=== PATIENT | male | born 1990 | race Caucasian/White ===

== ENCOUNTER 2017-12-09 22:06 | Inpatient (IN) | payer OTHER, MEDICAID ==
[~2017-12-09] VITALS: Ht 152.4 cm; Wt 38.5 kg
[2017-12-09] MEDS ORDERED: propofol 1000mg/100ml bottle 100 ML IV ONE (22:25)
[2017-12-09] MEDS: propofol 1000mg/100ml bottle 100 ML IV PRN (22:41)
[2017-12-09] MEDS ORDERED: ATR0.5NEB IH (22:59)
[2017-12-09] MEDS ORDERED: GUAI600T45 PO (22:59)
[2017-12-09] MEDS ORDERED: BUDE0.5A11 NEB (23:04)
[2017-12-09 23:18] LABS: CLARITY,URINE CLEAR (Clear); COLOR,URINE YELLOW (Yellow); GLUCOSE, URINE NEGATIVE (Neg); KETONES,URINE TRACE mg/dl (Neg); LEUKOCYTE ESTERASE ,URINE NEGATIVE (Neg); NITRITES, URINE NEGATIVE (Neg); OCCULT BLOOD,URINE NEGATIVE (Neg); PH,URINE 6.5 (4.8-8.0); PROTEIN,URINE NEGATIVE (Neg); UROBILINOGEN,URINE 0.2 E.U/dL (0.2-1.0)
[2017-12-09 23:20] LABS: UA COLLECTION TYPE FOLEY CATH
[2017-12-09 23:31] LABS: ABG BASE EXCESS 2.8 mmol/L (-2.0-3.0); ABG HCO3 28.7 mmol/L (22.0-26.0); ABG OXYGEN SATURATION 95.4 % (95-98); ABG PCO2 (T) 47.8 mmHg (35.0-48.0); ABG PH (T) 7.394 (7.350-7.450); ABG PO2 (T) 70.5 mmHg (83-108); FCOHb 0.9 % (0.5-1.5); FMetHb 0.2 % (0.3-1.12); FO2Hb 94.4 % (94-100); MINUTE VOLUME 5 L/min; PATIENT TEMPERATURE 36.4; PEEP 5 cm H2O; RESPIRATORY RATE 16 b/min; RESPIRATORY RATE (OBSERVED) 16 b/min; TIDAL VOLUME 275 mL; TOTAL HEMOGLOBIN 13.8 G/dl (14.0-18.0)
[2017-12-09] MEDS ORDERED: propofol 1000mg/100ml bottle 100 ML IV PRN (23:32)
[2017-12-09] MEDS ORDERED: magnesium hydroxide 30ml (MOM) UD suspension PO PRN (23:35)
[2017-12-09] MEDS ORDERED: ondansetron/PF 4mg/2ml inj IV PRN (23:35)
[2017-12-09] MEDS ORDERED: acetaminophen 650mg rectal suppository RC PRN (23:35)
[2017-12-09] MEDS: K, MAG and/or Phos replacement - Verify level? MC SCH (23:35)
[2017-12-09] MEDS ORDERED: potassium Cl 40MEQ/NS 500ml 500 ML IV PRN ×2 (23:35)
[2017-12-09] MEDS ORDERED: potassium Cl 20 mEq SR tablet PO PRN ×2 (23:35)
[2017-12-09] MEDS ORDERED: morphine 4 MG/ML inj SYRINge IV PRN ×2 (23:35)
[2017-12-09] MEDS ORDERED: acetaminophen 325mg tablet PO PRN (23:35)
[2017-12-09 23:57] LABS: INR 1.1 INR; PARTIAL THROMBOPLASTIN TIME 23 SECONDS (22-32); PROTHROMBIN TIME 11.1 SECONDS (9.0-12.0)
[2017-12-10] VITALS (26 sets, daily range): BP systolic 78–133; BP diastolic 40–88
[2017-12-10] MEDS: normal saline 1000ml 1,000 ML IV SCH ×2 (00:06→07:13)
[2017-12-10] MEDS: levoFLOXACIN-Levaquin 500mg/D5 100 ML IV SCH ×2 (00:06→23:49)
[2017-12-10 01:19] LABS: ALANINE AMINOTRANSFERASE 50 U/L (12-78); ALBUMIN 2.6 G/DL (3.4-5.0); ALBUMIN/GLOBULIN RATIO 0.8 (1.1-1.5); ALKALINE PHOSPHATASE 44 IU/L (46-116); ANION GAP 7 (8-16); ASPARTATE AMINO TRANSFERASE 42 U/L (10-37); BILIRUBIN,TOTAL 0.4 MG/DL (0.1-1.0); BLOOD UREA NITROGEN 7 MG/DL (7-18); BUN/CREATININE RATIO 33.3 (5.4-32.0); CHLORIDE 111 MMOL/L (99-107); CREATININE 0.21 MG/DL (0.60-1.10); GLUCOSE 125 MG/DL (70-104); MAGNESIUM 1.5 MG/DL (1.5-2.4); POTASSIUM 3.3 MMOL/L (3.5-5.1); SODIUM 147 MMOL/L (135-145); TOTAL CARBON DIOXIDE 28.9 MMOL/L (24-32); TOTAL PROTEIN 5.9 G/DL (6.4-8.2); eGFR > 90 ML/MIN
[2017-12-10] MEDS: propofol 1000mg/100ml bottle 100 ML IV PRN ×3 (01:57→14:00)
[2017-12-10] MEDS: azithromycin/NS 500mg/250ml 250 ML IV SCH ×2 (03:01→20:13)
[2017-12-10] MEDS ORDERED: potassium Cl 40MEQ/NS 500ml 500 ML IV ONE (03:40)
[2017-12-10 04:32] LABS: BASOPHILS % (AUTO) 0 % (0-1); EOSINOPHILS % (AUTO) 0 % (0-6); HEMATOCRIT 41.4 % (42.0-52.0); HEMOGLOBIN 13.6 g/dl (14.0-17.9); LYMPHOCYTES # (AUTO) 0.6 X10'3 (1.1-4.8); LYMPHOCYTES % (AUTO) 2.4 % (21-51); MEAN CORPUSCULAR HEMOGLOBIN 30.3 PG (27.0-31.0); MEAN CORPUSCULAR HGB CONC 32.9 % (33.0-36.5); MEAN CORPUSCULAR VOLUME 92.1 FL (78-98); MEAN PLATELET VOLUME 8.4 FL (7.4-10.4); MONOCYTES # (AUTO) 1.8 X10'3 (0-0.9); MONOCYTES % (AUTO) 6.8 % (2-12); NEUTROPHILS % (AUTO) 90.8 % (42-75); PLATELET COUNT 298 X10'3 (140-440); RED BLOOD COUNT 4.49 X10'6 (4.70-6.10); RED CELL DISTRIBUTION WIDTH 13.6 % (11.5-14.5)
[2017-12-10 04:34] LABS: WHITE BLOOD COUNT 26.4 X10'3 (4.5-11.0)
[2017-12-10] MEDS ORDERED: midazolam 100mg in NS 100ml 100 ML IV PRN (04:55)
[2017-12-10] MEDS ORDERED: normal saline 1000ml 1,000 ML IV ONE (05:00)
[2017-12-10 07:13] LABS: TOTAL CELLS COUNTED 100
[2017-12-10 07:14] LABS: PLATELET ESTIMATE NORMAL; TOXIC GRANULATION 1+; TOXIC VACUOLATION 1+
[2017-12-10] MEDS: K, MAG and/or Phos replacement - Verify level? MC SCH (08:00)
[2017-12-10] MEDS ORDERED: enoxaparin 40mg/0.4ml syringe SUBCUT SCH (08:00)
[2017-12-10] MEDS: pantoprazole 40 MG vial IV SCH (08:04)
[2017-12-10] MEDS ORDERED: enoxaparin 30mg/0.3ml syringe SUBCUT SCH (10:46)
[2017-12-10 11:44] LABS: BASOPHILS % (AUTO) 0.1 % (0-1); EOSINOPHILS % (AUTO) 0 % (0-6); HEMOGLOBIN 12.3 g/dl (14.0-17.9); LYMPHOCYTES # (AUTO) 0.9 X10'3 (1.1-4.8); LYMPHOCYTES % (AUTO) 4.2 % (21-51); MEAN CORPUSCULAR HEMOGLOBIN 30.9 PG (27.0-31.0); MEAN CORPUSCULAR HGB CONC 34.2 % (33.0-36.5); MEAN CORPUSCULAR VOLUME 90.4 FL (78-98); MONOCYTES # (AUTO) 0.9 X10'3 (0-0.9); MONOCYTES % (AUTO) 4.3 % (2-12); NEUTROPHILS # (AUTO) 19.6 X10'3 (1.8-7.7); NEUTROPHILS % (AUTO) 91.4 % (42-75); PLATELET COUNT 286 X10'3 (140-440); RED BLOOD COUNT 3.98 X10'6 (4.70-6.10); RED CELL DISTRIBUTION WIDTH 13.4 % (11.5-14.5); WHITE BLOOD COUNT 21.5 X10'3 (4.5-11.0)
[2017-12-10 11:58] LABS: ALANINE AMINOTRANSFERASE 55 U/L (12-78); ALBUMIN/GLOBULIN RATIO 0.8 (1.1-1.5); ALKALINE PHOSPHATASE 96 IU/L (46-116); ANION GAP 8 (8-16); ASPARTATE AMINO TRANSFERASE 37 U/L (10-37); BILIRUBIN,TOTAL 0.8 MG/DL (0.1-1.0); BLOOD UREA NITROGEN 8 MG/DL (7-18); BUN/CREATININE RATIO 26.7 (5.4-32.0); CALCIUM 8.9 MG/DL (8.5-10.1); CHLORIDE 111 MMOL/L (99-107); GLUCOSE 86 MG/DL (70-104); MAGNESIUM 1.9 MG/DL (1.5-2.4); PHOSPHORUS 1.3 MG/DL (2.3-4.5); POTASSIUM 4.2 MMOL/L (3.5-5.1); SODIUM 146 MMOL/L (135-145); TOTAL CARBON DIOXIDE 27.1 MMOL/L (24-32); TOTAL PROTEIN 6.7 G/DL (6.4-8.2); eGFR > 90 ML/MIN
[2017-12-10 11:59] LABS: PLATELET ESTIMATE NORMAL; TOTAL CELLS COUNTED 100
[2017-12-10 12:00] LABS: TOXIC VACUOLATION FEW
[2017-12-10] MEDS: Potassium Cl inj 40 MEQ in sodium chloride 0.45% 980 ML IV SCH ×2 (13:57→20:00)
[2017-12-10] MEDS ORDERED: sodium phosphate inj. 30 MMOL in dextrose 5%-water 250 ML IV PRN (14:06)
[2017-12-10] MEDS: Neutra Phos packet PO PRN ×2 (14:35→23:49)
[2017-12-10] MEDS: acetaminophen 325mg/10.15ml oral unit dose solution PO PRN ×2 (14:36→20:14)
[2017-12-10] MEDS: levalbuterol 0.63mg/3ml nebule IH SCH ×2 (14:38→21:24)
[2017-12-10] MEDS: polyethylene glycol 3350 17gm powd pack PO SCH (20:14)
[2017-12-11] VITALS (24 sets, daily range): BP systolic 93–138; BP diastolic 53–91
[2017-12-11] MEDS: Potassium Cl inj 40 MEQ in sodium chloride 0.45% 980 ML IV SCH ×2 (03:02→16:00)
[2017-12-11] MEDS: mineral oil/petrolatum ophthal oint EACHEYE SCH ×4 (03:03→20:21)
[2017-12-11] MEDS: levalbuterol 0.63mg/3ml nebule IH SCH ×4 (03:05→21:29)
[2017-12-11 03:36] LABS: BASOPHILS # (AUTO) 0.1 X10'3 (0-0.2); BASOPHILS % (AUTO) 0.3 % (0-1); EOSINOPHILS % (AUTO) 0 % (0-6); HEMATOCRIT 34.5 % (42.0-52.0); HEMOGLOBIN 11.6 g/dl (14.0-17.9); LYMPHOCYTES # (AUTO) 2.1 X10'3 (1.1-4.8); LYMPHOCYTES % (AUTO) 11.5 % (21-51); MEAN CORPUSCULAR HEMOGLOBIN 30.7 PG (27.0-31.0); MEAN CORPUSCULAR HGB CONC 33.7 % (33.0-36.5); MEAN CORPUSCULAR VOLUME 91.2 FL (78-98); MONOCYTES # (AUTO) 1.2 X10'3 (0-0.9); MONOCYTES % (AUTO) 6.7 % (2-12); NEUTROPHILS % (AUTO) 81.5 % (42-75); PLATELET COUNT 295 X10'3 (140-440); RED BLOOD COUNT 3.78 X10'6 (4.70-6.10); RED CELL DISTRIBUTION WIDTH 13.5 % (11.5-14.5); WHITE BLOOD COUNT 18.4 X10'3 (4.5-11.0)
[2017-12-11 03:51] LABS: ALANINE AMINOTRANSFERASE 124 U/L (12-78); ALBUMIN/GLOBULIN RATIO 0.7 (1.1-1.5); ALKALINE PHOSPHATASE 77 IU/L (46-116); ANION GAP 10 (8-16); ASPARTATE AMINO TRANSFERASE 99 U/L (10-37); BILIRUBIN,TOTAL 0.9 MG/DL (0.1-1.0); BLOOD UREA NITROGEN 4 MG/DL (7-18); BUN/CREATININE RATIO 11.8 (5.4-32.0); CHLORIDE 105 MMOL/L (99-107); CREATININE 0.34 MG/DL (0.60-1.10); GLUCOSE 90 MG/DL (70-104); MAGNESIUM 1.8 MG/DL (1.5-2.4); PHOSPHORUS 1.4 MG/DL (2.3-4.5); POTASSIUM 3.9 MMOL/L (3.5-5.1); SODIUM 140 MMOL/L (135-145); TOTAL CARBON DIOXIDE 25.4 MMOL/L (24-32); TOTAL PROTEIN 7.2 G/DL (6.4-8.2); eGFR > 90 ML/MIN
[2017-12-11 05:21] LABS: ABG BASE EXCESS 3.2 mmol/L (-2.0-3.0); ABG HCO3 25.7 mmol/L (22.0-26.0); ABG OXYGEN SATURATION 96.8 % (95-98); ABG PCO2 (T) 34.9 mmHg (35.0-48.0); ABG PH (T) 7.491 (7.350-7.450); ABG PO2 (T) 85.3 mmHg (83-108); ALLEN'S TEST Positive; FCOHb 0.1 % (0.5-1.5); FMetHb 0.2 % (0.3-1.12); FO2Hb 96.5 % (94-100); MINUTE VOLUME 8 L/min; PATIENT TEMPERATURE 38.5; PEEP 5 cm H2O; RESPIRATORY RATE 16 b/min; RESPIRATORY RATE (OBSERVED) 17 b/min; TIDAL VOLUME 400 mL; TOTAL HEMOGLOBIN 12.3 G/dl (14.0-18.0)
[2017-12-11] MEDS: acetaminophen 325mg/10.15ml oral unit dose solution PO PRN ×2 (05:41→15:48)
[2017-12-11] MEDS: K, MAG and/or Phos replacement - Verify level? MC SCH (08:00)
[2017-12-11] MEDS: pantoprazole 40 MG vial IV SCH (08:11)
[2017-12-11] MEDS: enoxaparin 30mg/0.3ml syringe SUBCUT SCH (08:12)
[2017-12-11] MEDS: polyethylene glycol 3350 17gm powd pack PO SCH (20:21)
[2017-12-11] MEDS: azithromycin/NS 500mg/250ml 250 ML IV SCH (20:21)
[2017-12-11] MEDS: levoFLOXACIN-Levaquin 500mg/D5 100 ML IV SCH (23:56)
[2017-12-12] VITALS (24 sets, daily range): BP systolic 81–147; BP diastolic 58–105
[2017-12-12] MEDS: mineral oil/petrolatum ophthal oint EACHEYE SCH ×4 (01:05→21:02)
[2017-12-12] MEDS: acetaminophen 325mg/10.15ml oral unit dose solution PO PRN (01:06)
[2017-12-12] MEDS: Potassium Cl inj 40 MEQ in sodium chloride 0.45% 980 ML IV SCH ×3 (01:06→18:06)
[2017-12-12] MEDS: levalbuterol 0.63mg/3ml nebule IH SCH ×4 (03:06→21:20)
[2017-12-12 03:36] LABS: ANION GAP 10 (8-16); BLOOD UREA NITROGEN 5 MG/DL (7-18); BUN/CREATININE RATIO 17.2 (5.4-32.0); CALCIUM 7.9 MG/DL (8.5-10.1); CHLORIDE 108 MMOL/L (99-107); CREATININE 0.29 MG/DL (0.60-1.10); GLUCOSE 103 MG/DL (70-104); MAGNESIUM 1.7 MG/DL (1.5-2.4); SODIUM 141 MMOL/L (135-145); TOTAL CARBON DIOXIDE 23.1 MMOL/L (24-32); eGFR > 90 ML/MIN
[2017-12-12 03:37] LABS: ALANINE AMINOTRANSFERASE 104 U/L (12-78); ALBUMIN 2.5 G/DL (3.4-5.0); ALBUMIN/GLOBULIN RATIO 0.6 (1.1-1.5); ALKALINE PHOSPHATASE 84 IU/L (46-116); BILIRUBIN,TOTAL 0.5 MG/DL (0.1-1.0); PREALBUMIN 13.7 MG/DL (19-36); TOTAL PROTEIN 6.8 G/DL (6.4-8.2)
[2017-12-12 03:38] LABS: ASPARTATE AMINO TRANSFERASE 78 U/L (10-37); PHOSPHORUS 1.7 MG/DL (2.3-4.5); POTASSIUM 3.9 MMOL/L (3.5-5.1)
[2017-12-12 03:43] LABS: BASOPHILS % (AUTO) 0.4 % (0-1); EOSINOPHILS # (AUTO) 0.1 X10'3 (0-0.9); EOSINOPHILS % (AUTO) 0.6 % (0-6); HEMATOCRIT 34.6 % (42.0-52.0); HEMOGLOBIN 11.8 g/dl (14.0-17.9); LYMPHOCYTES # (AUTO) 1.3 X10'3 (1.1-4.8); MEAN CORPUSCULAR HEMOGLOBIN 30.7 PG (27.0-31.0); MEAN CORPUSCULAR HGB CONC 34.2 % (33.0-36.5); MEAN CORPUSCULAR VOLUME 89.9 FL (78-98); MEAN PLATELET VOLUME 9.2 FL (7.4-10.4); NEUTROPHILS # (AUTO) 9.8 X10'3 (1.8-7.7); PLATELET COUNT 302 X10'3 (140-440); RED BLOOD COUNT 3.85 X10'6 (4.70-6.10); RED CELL DISTRIBUTION WIDTH 12.6 % (11.5-14.5); WHITE BLOOD COUNT 12.2 X10'3 (4.5-11.0)
[2017-12-12] MEDS: sodium phosphate inj. 15 MMOL in dextrose 5%-water 150 ML IV PRN (03:52)
[2017-12-12 04:40] LABS: ABG BASE EXCESS 1.9 mmol/L (-2.0-3.0); ABG HCO3 25.2 mmol/L (22.0-26.0); ABG OXYGEN SATURATION 93.4 % (95-98); ABG PCO2 (T) 36.3 mmHg (35.0-48.0); ABG PH (T) 7.462 (7.350-7.450); ABG PO2 (T) 62.2 mmHg (83-108); ALLEN'S TEST Positive; FCOHb 0.3 % (0.5-1.5); FMetHb 0.3 % (0.3-1.12); FO2Hb 92.8 % (94-100); MINUTE VOLUME 7 L/min; PATIENT TEMPERATURE 37.9; PEEP 5 cm H2O; RESPIRATORY RATE 14 b/min; RESPIRATORY RATE (OBSERVED) 15 b/min; TIDAL VOLUME 400 mL; TOTAL HEMOGLOBIN 12.9 G/dl (14.0-18.0)
[2017-12-12] MEDS: pantoprazole 40 MG vial IV SCH (07:57)
[2017-12-12] MEDS: methylnaltrexone br 12mg/0.6ml inj***SubQ only SQ SCH (07:58)
[2017-12-12] MEDS: enoxaparin 30mg/0.3ml syringe SUBCUT SCH (07:58)
[2017-12-12] MEDS: K, MAG and/or Phos replacement - Verify level? MC SCH (08:11)
[2017-12-12] MEDS: [UNRECOGNIZED DRUG - OTHER] IV SCH (12:43)
[2017-12-12 16:40] LABS: TOTAL CELLS COUNTED 100
[2017-12-12 16:41] LABS: BURR CELLS 1+; PLATELET ESTIMATE NORMAL; POLYCHROMASIA FEW
[2017-12-12] MEDS: polyethylene glycol 3350 17gm powd pack PO SCH (21:02)
[2017-12-12] MEDS: lactobacillus rhamnosus 10,000 MMU CELLS/CAPSULE PO SCH (21:02)
[2017-12-12] MEDS: azithromycin/NS 500mg/250ml 250 ML IV SCH (21:03)
[2017-12-13] VITALS (20 sets, daily range): BP systolic 86–125; BP diastolic 51–86
[2017-12-13] MEDS: mineral oil/petrolatum ophthal oint EACHEYE SCH ×4 (02:00→21:22)
[2017-12-13] MEDS: levalbuterol 0.63mg/3ml nebule IH SCH ×4 (03:04→21:05)
[2017-12-13 05:25] LABS: HEMATOCRIT 38.6 % (42.0-52.0); MEAN CORPUSCULAR HEMOGLOBIN 30.3 PG (27.0-31.0); MEAN CORPUSCULAR HGB CONC 33.6 % (33.0-36.5); MEAN CORPUSCULAR VOLUME 90.1 FL (78-98); MEAN PLATELET VOLUME 8.6 FL (7.4-10.4); PLATELET COUNT 357 X10'3 (140-440); RED BLOOD COUNT 4.28 X10'6 (4.70-6.10); RED CELL DISTRIBUTION WIDTH 13.6 % (11.5-14.5); WHITE BLOOD COUNT 9.9 X10'3 (4.5-11.0)
[2017-12-13 05:46] LABS: ANION GAP 10 (8-16); BLOOD UREA NITROGEN 7 MG/DL (7-18); BUN/CREATININE RATIO 20.6 (5.4-32.0); CHLORIDE 102 MMOL/L (99-107); CREATININE 0.34 MG/DL (0.60-1.10); GLUCOSE 99 MG/DL (70-104); POTASSIUM 4.6 MMOL/L (3.5-5.1); SODIUM 139 MMOL/L (135-145); TOTAL CARBON DIOXIDE 26.6 MMOL/L (24-32)
[2017-12-13 05:47] LABS: ALANINE AMINOTRANSFERASE 124 U/L (12-78); ALBUMIN 3.3 G/DL (3.4-5.0); ALBUMIN/GLOBULIN RATIO 0.6 (1.1-1.5); ALKALINE PHOSPHATASE 127 IU/L (46-116); ASPARTATE AMINO TRANSFERASE 68 U/L (10-37); BILIRUBIN,TOTAL 0.6 MG/DL (0.1-1.0); CALCIUM 10.1 MG/DL (8.5-10.1); MAGNESIUM 2.3 MG/DL (1.5-2.4); PHOSPHORUS 2.8 MG/DL (2.3-4.5); TOTAL PROTEIN 8.4 G/DL (6.4-8.2); eGFR > 90 ML/MIN
[2017-12-13] MEDS: Potassium Cl inj 40 MEQ in sodium chloride 0.45% 980 ML IV SCH ×3 (05:50→17:47)
[2017-12-13] MEDS: lactobacillus rhamnosus 10,000 MMU CELLS/CAPSULE PO SCH ×3 (08:00→20:00)
[2017-12-13] MEDS: K, MAG and/or Phos replacement - Verify level? MC SCH (08:00)
[2017-12-13] MEDS: [UNRECOGNIZED DRUG - OTHER] IV SCH (08:07)
[2017-12-13] MEDS: pantoprazole 40 MG vial IV SCH (08:07)
[2017-12-13] MEDS: enoxaparin 30mg/0.3ml syringe SUBCUT SCH (08:08)
[2017-12-13 08:11] LABS: ABG BASE EXCESS 1.7 mmol/L (-2.0-3.0); ABG HCO3 26.1 mmol/L (22.0-26.0); ABG OXYGEN SATURATION 96.6 % (95-98); ABG PCO2 (T) 39.8 mmHg (35.0-48.0); ABG PH (T) 7.433 (7.350-7.450); ABG PO2 (T) 82.7 mmHg (83-108); FCOHb 0.5 % (0.5-1.5); FMetHb 0.2 % (0.3-1.12); FO2Hb 95.9 % (94-100); MINUTE VOLUME 9 L/min; PATIENT TEMPERATURE 36.9; PEEP 5 cm H2O; RESPIRATORY RATE (OBSERVED) 33 b/min; TIDAL VOLUME 317 mL; TOTAL HEMOGLOBIN 14.6 G/dl (14.0-18.0)
[2017-12-13 10:23] LABS: TOTAL CELLS COUNTED 100
[2017-12-13 10:24] LABS: PLATELET ESTIMATE NORMAL; POLYCHROMASIA 1+
[2017-12-13 10:25] LABS: BURR CELLS 1+
[2017-12-13] MEDS ORDERED: bisacodyl 10mg suppository rectal RC PRN (12:20)
[2017-12-13] MEDS: acetaminophen 325mg tablet PO PRN (17:41)
[2017-12-13] MEDS: polyethylene glycol 3350 17gm powd pack PO SCH (21:22)
[2017-12-13] MEDS: azithromycin/NS 500mg/250ml 250 ML IV SCH (21:24)
[2017-12-14] VITALS (24 sets, daily range): BP systolic 82–122; BP diastolic 54–85
[2017-12-14] MEDS: mineral oil/petrolatum ophthal oint EACHEYE SCH ×4 (01:59→20:00)
[2017-12-14] MEDS: acetaminophen 325mg tablet PO PRN ×3 (02:10→17:40)
[2017-12-14] MEDS: levalbuterol 0.63mg/3ml nebule IH SCH ×4 (03:13→20:43)
[2017-12-14 05:52] LABS: ANION GAP 9 (8-16); BLOOD UREA NITROGEN 9 MG/DL (7-18); BUN/CREATININE RATIO 25.7 (5.4-32.0); CHLORIDE 103 MMOL/L (99-107); CREATININE 0.35 MG/DL (0.60-1.10); GLUCOSE 97 MG/DL (70-104); POTASSIUM 4.6 MMOL/L (3.5-5.1); SODIUM 138 MMOL/L (135-145); TOTAL CARBON DIOXIDE 26.1 MMOL/L (24-32); eGFR > 90 ML/MIN
[2017-12-14 05:53] LABS: ALANINE AMINOTRANSFERASE 156 U/L (12-78); ALBUMIN 3.2 G/DL (3.4-5.0); ALBUMIN/GLOBULIN RATIO 0.7 (1.1-1.5); ALKALINE PHOSPHATASE 134 IU/L (46-116); ASPARTATE AMINO TRANSFERASE 107 U/L (10-37); BILIRUBIN,TOTAL 0.5 MG/DL (0.1-1.0); CALCIUM 9.6 MG/DL (8.5-10.1); MAGNESIUM 2.3 MG/DL (1.5-2.4); PHOSPHORUS 3.9 MG/DL (2.3-4.5); TOTAL PROTEIN 8.1 G/DL (6.4-8.2)
[2017-12-14] MEDS: Potassium Cl inj 40 MEQ in sodium chloride 0.45% 980 ML IV SCH (05:57)
[2017-12-14] MEDS: K, MAG and/or Phos replacement - Verify level? MC SCH (06:31)
[2017-12-14 06:54] LABS: HEMATOCRIT 38.1 % (42.0-52.0); MEAN CORPUSCULAR HEMOGLOBIN 30.4 PG (27.0-31.0); MEAN CORPUSCULAR HGB CONC 34.1 % (33.0-36.5); MEAN CORPUSCULAR VOLUME 89.2 FL (78-98); MEAN PLATELET VOLUME 8.6 FL (7.4-10.4); PLATELET COUNT 360 X10'3 (140-440); RED BLOOD COUNT 4.27 X10'6 (4.70-6.10); RED CELL DISTRIBUTION WIDTH 13.2 % (11.5-14.5); WHITE BLOOD COUNT 10.1 X10'3 (4.5-11.0)
[2017-12-14] MEDS: pantoprazole 40 MG vial IV SCH (07:02)
[2017-12-14] MEDS: enoxaparin 30mg/0.3ml syringe SUBCUT SCH (07:02)
[2017-12-14] MEDS: methylnaltrexone br 12mg/0.6ml inj***SubQ only SQ SCH (07:02)
[2017-12-14] MEDS: [UNRECOGNIZED DRUG - OTHER] IV SCH (07:03)
[2017-12-14] MEDS: lactobacillus rhamnosus 10,000 MMU CELLS/CAPSULE PO SCH ×2 (07:03→20:00)
[2017-12-14 10:21] LABS: PLATELET ESTIMATE NORMAL; TOTAL CELLS COUNTED 100
[2017-12-14] MEDS: polyethylene glycol 3350 17gm powd pack PO SCH (21:00)
[2017-12-14] MEDS: azithromycin/NS 500mg/250ml 250 ML IV SCH (21:06)
[2017-12-15] VITALS (21 sets, daily range): BP systolic 90–133; BP diastolic 60–88
[2017-12-15] MEDS: mineral oil/petrolatum ophthal oint EACHEYE SCH ×2 (02:00→08:00)
[2017-12-15] MEDS: levalbuterol 0.63mg/3ml nebule IH SCH ×4 (02:46→20:37)
[2017-12-15 05:39] LABS: HEMATOCRIT 38.1 % (42.0-52.0); HEMOGLOBIN 12.9 g/dl (14.0-17.9); MEAN CORPUSCULAR HEMOGLOBIN 30.6 PG (27.0-31.0); MEAN CORPUSCULAR HGB CONC 33.9 % (33.0-36.5); MEAN CORPUSCULAR VOLUME 90.2 FL (78-98); MEAN PLATELET VOLUME 8.1 FL (7.4-10.4); PLATELET COUNT 394 X10'3 (140-440); RED BLOOD COUNT 4.22 X10'6 (4.70-6.10); RED CELL DISTRIBUTION WIDTH 13.8 % (11.5-14.5); WHITE BLOOD COUNT 7.6 X10'3 (4.5-11.0)
[2017-12-15 06:33] LABS: ALANINE AMINOTRANSFERASE 162 U/L (12-78); ALBUMIN 3.3 G/DL (3.4-5.0); ALBUMIN/GLOBULIN RATIO 0.6 (1.1-1.5); ALKALINE PHOSPHATASE 132 IU/L (46-116); ANION GAP 6 (8-16); ASPARTATE AMINO TRANSFERASE 90 U/L (10-37); BILIRUBIN,TOTAL 0.3 MG/DL (0.1-1.0); BLOOD UREA NITROGEN 7 MG/DL (7-18); BUN/CREATININE RATIO 18.4 (5.4-32.0); CALCIUM 9.8 MG/DL (8.5-10.1); CHLORIDE 106 MMOL/L (99-107); CREATININE 0.38 MG/DL (0.60-1.10); GLUCOSE 106 MG/DL (70-104); MAGNESIUM 2.5 MG/DL (1.5-2.4); POTASSIUM 4.3 MMOL/L (3.5-5.1); PREALBUMIN 23.1 MG/DL (19-36); SODIUM 145 MMOL/L (135-145); TOTAL PROTEIN 8.4 G/DL (6.4-8.2); eGFR > 90 ML/MIN
[2017-12-15] MEDS: [UNRECOGNIZED DRUG - OTHER] IV SCH (08:00)
[2017-12-15] MEDS: pantoprazole 40 MG vial IV SCH (08:00)
[2017-12-15] MEDS: enoxaparin 30mg/0.3ml syringe SUBCUT SCH (08:00)
[2017-12-15] MEDS: lactobacillus rhamnosus 10,000 MMU CELLS/CAPSULE PO SCH ×2 (08:00→21:12)
[2017-12-15] MEDS: K, MAG and/or Phos replacement - Verify level? MC SCH (08:00)
[2017-12-15 13:03] LABS: PLATELET ESTIMATE NORMAL; TOTAL CELLS COUNTED 100
[2017-12-15] MEDS ORDERED: acetaminophen 325mg/10.15ml oral unit dose solution PO PRN (18:02)
[2017-12-15] MEDS: azithromycin/NS 500mg/250ml 250 ML IV SCH (21:12)
[2017-12-15] MEDS: polyethylene glycol 3350 17gm powd pack PO SCH (21:12)
[2017-12-15] MEDS: acetaminophen 325mg/10.15ml oral unit dose solution PO PRN (21:25)
[2017-12-16] VITALS (23 sets, daily range): BP systolic 85–132; BP diastolic 48–92
[2017-12-16] MEDS: levalbuterol 0.63mg/3ml nebule IH SCH ×4 (02:43→20:49)
[2017-12-16 05:36] LABS: HEMATOCRIT 38.7 % (42.0-52.0); HEMOGLOBIN 12.9 g/dl (14.0-17.9); MEAN CORPUSCULAR HEMOGLOBIN 30.4 PG (27.0-31.0); MEAN CORPUSCULAR HGB CONC 33.4 % (33.0-36.5); MEAN CORPUSCULAR VOLUME 91.2 FL (78-98); MEAN PLATELET VOLUME 7.8 FL (7.4-10.4); PLATELET COUNT 437 X10'3 (140-440); RED BLOOD COUNT 4.25 X10'6 (4.70-6.10); RED CELL DISTRIBUTION WIDTH 14.1 % (11.5-14.5); WHITE BLOOD COUNT 13.9 X10'3 (4.5-11.0)
[2017-12-16 06:28] LABS: ALANINE AMINOTRANSFERASE 154 U/L (12-78); ALBUMIN 3.3 G/DL (3.4-5.0); ALBUMIN/GLOBULIN RATIO 0.7 (1.1-1.5); ALKALINE PHOSPHATASE 113 IU/L (46-116); ANION GAP 5 (8-16); ASPARTATE AMINO TRANSFERASE 78 U/L (10-37); BILIRUBIN,TOTAL 0.3 MG/DL (0.1-1.0); BLOOD UREA NITROGEN 12 MG/DL (7-18); BUN/CREATININE RATIO 31.6 (5.4-32.0); CALCIUM 9.9 MG/DL (8.5-10.1); CHLORIDE 102 MMOL/L (99-107); CREATININE 0.38 MG/DL (0.60-1.10); GLUCOSE 115 MG/DL (70-104); MAGNESIUM 2.4 MG/DL (1.5-2.4); SODIUM 141 MMOL/L (135-145); TOTAL CARBON DIOXIDE 34.1 MMOL/L (24-32); TOTAL PROTEIN 8.3 G/DL (6.4-8.2); eGFR > 90 ML/MIN
[2017-12-16] MEDS: K, MAG and/or Phos replacement - Verify level? MC SCH (07:17)
[2017-12-16] MEDS: lactobacillus rhamnosus 10,000 MMU CELLS/CAPSULE PO SCH ×2 (07:55→20:19)
[2017-12-16] MEDS: enoxaparin 30mg/0.3ml syringe SUBCUT SCH (07:55)
[2017-12-16] MEDS: pantoprazole 40 MG vial IV SCH (07:55)
[2017-12-16] MEDS: [UNRECOGNIZED DRUG - OTHER] IV SCH (07:55)
[2017-12-16] MEDS: methylnaltrexone br 12mg/0.6ml inj***SubQ only SQ SCH (07:56)
[2017-12-16 08:06] LABS: PLATELET ESTIMATE NORMAL; TOTAL CELLS COUNTED 100
[2017-12-16] MEDS ORDERED: levoFLOXACIN 750MG TABLET PO ONE (11:40)
[2017-12-16] MEDS: azithromycin 200mg/5ml oral suspension 15ml bottle PO SCH (12:03)
[2017-12-16] MEDS: guaiFENesin 200 MG/10 ML oral syrup UD cup PO PRN (18:05)
[2017-12-16] MEDS: acetaminophen 325mg/10.15ml oral unit dose solution PO PRN (18:28)
[2017-12-16] MEDS: polyethylene glycol 3350 17gm powd pack PO SCH (20:19)
[2017-12-17] VITALS (18 sets, daily range): BP systolic 82–138; BP diastolic 47–89
[2017-12-17] MEDS: guaiFENesin 200 MG/10 ML oral syrup UD cup PO PRN ×4 (00:26→19:58)
[2017-12-17] MEDS: levalbuterol 0.63mg/3ml nebule IH SCH ×4 (02:06→20:18)
[2017-12-17 06:19] LABS: BASOPHILS # (AUTO) 0.1 X10'3 (0-0.2); BASOPHILS % (AUTO) 0.7 % (0-1); EOSINOPHILS % (AUTO) 0 % (0-6); HEMATOCRIT 38.1 % (42.0-52.0); HEMOGLOBIN 12.7 g/dl (14.0-17.9); LYMPHOCYTES # (AUTO) 2.3 X10'3 (1.1-4.8); LYMPHOCYTES % (AUTO) 22.9 % (21-51); MEAN CORPUSCULAR HEMOGLOBIN 30.9 PG (27.0-31.0); MEAN CORPUSCULAR HGB CONC 33.2 % (33.0-36.5); MEAN PLATELET VOLUME 7.9 FL (7.4-10.4); MONOCYTES # (AUTO) 1.4 X10'3 (0-0.9); MONOCYTES % (AUTO) 14.1 % (2-12); NEUTROPHILS # (AUTO) 6.2 X10'3 (1.8-7.7); NEUTROPHILS % (AUTO) 62.3 % (42-75); PLATELET COUNT 441 X10'3 (140-440); RED CELL DISTRIBUTION WIDTH 14.1 % (11.5-14.5); WHITE BLOOD COUNT 9.9 X10'3 (4.5-11.0)
[2017-12-17 06:48] LABS: ALANINE AMINOTRANSFERASE 140 U/L (12-78); ALBUMIN 3.3 G/DL (3.4-5.0); ALBUMIN/GLOBULIN RATIO 0.7 (1.1-1.5); ALKALINE PHOSPHATASE 103 IU/L (46-116); ANION GAP 5 (8-16); ASPARTATE AMINO TRANSFERASE 52 U/L (10-37); BILIRUBIN,TOTAL 0.3 MG/DL (0.1-1.0); BLOOD UREA NITROGEN 11 MG/DL (7-18); BUN/CREATININE RATIO 40.7 (5.4-32.0); CALCIUM 9.7 MG/DL (8.5-10.1); CHLORIDE 101 MMOL/L (99-107); CREATININE 0.27 MG/DL (0.60-1.10); GLUCOSE 93 MG/DL (70-104); MAGNESIUM 2.5 MG/DL (1.5-2.4); PHOSPHORUS 3.5 MG/DL (2.3-4.5); POTASSIUM 3.8 MMOL/L (3.5-5.1); SODIUM 143 MMOL/L (135-145); TOTAL CARBON DIOXIDE 36.9 MMOL/L (24-32); TOTAL PROTEIN 8.1 G/DL (6.4-8.2); eGFR > 90 ML/MIN
[2017-12-17 07:02] LABS: PLATELET ESTIMATE INCREASED; TOTAL CELLS COUNTED 100
[2017-12-17] MEDS: K, MAG and/or Phos replacement - Verify level? MC SCH (08:00)
[2017-12-17] MEDS: azithromycin 200mg/5ml oral suspension 15ml bottle PO SCH (08:53)
[2017-12-17] MEDS: pantoprazole 40 MG vial IV SCH (08:53)
[2017-12-17] MEDS: enoxaparin 30mg/0.3ml syringe SUBCUT SCH (08:54)
[2017-12-17] MEDS: lactobacillus rhamnosus 10,000 MMU CELLS/CAPSULE PO SCH ×2 (08:54→19:56)
[2017-12-17] MEDS: acetaminophen 325mg/10.15ml oral unit dose solution PO PRN ×2 (10:14→20:00)
[2017-12-17] MEDS: levoFLOXACIN 750MG TABLET PO SCH (13:15)
[2017-12-17] MEDS: polyethylene glycol 3350 17gm powd pack PO SCH (19:58)
[2017-12-17] MEDS: budesonide 0.5mg/2ml UD nebule IH SCH ×2 (20:18→21:00)
[2017-12-18] VITALS (24 sets, daily range): BP systolic 84–153; BP diastolic 55–98
[2017-12-18] MEDS: acetaminophen 325mg/10.15ml oral unit dose solution PO PRN (01:50)
[2017-12-18] MEDS: guaiFENesin 200 MG/10 ML oral syrup UD cup PO PRN ×2 (01:50→08:27)
[2017-12-18] MEDS: levalbuterol 0.63mg/3ml nebule IH SCH ×4 (03:47→21:03)
[2017-12-18 04:19] LABS: BASOPHILS # (AUTO) 0.1 X10'3 (0-0.2); BASOPHILS % (AUTO) 0.7 % (0-1); EOSINOPHILS # (AUTO) 0.1 X10'3 (0-0.9); EOSINOPHILS % (AUTO) 1.1 % (0-6); HEMATOCRIT 36.1 % (42.0-52.0); LYMPHOCYTES # (AUTO) 2.8 X10'3 (1.1-4.8); LYMPHOCYTES % (AUTO) 25.3 % (21-51); MEAN CORPUSCULAR HEMOGLOBIN 30.6 PG (27.0-31.0); MEAN CORPUSCULAR HGB CONC 33.4 % (33.0-36.5); MEAN CORPUSCULAR VOLUME 91.7 FL (78-98); MEAN PLATELET VOLUME 7.5 FL (7.4-10.4); MONOCYTES # (AUTO) 1.3 X10'3 (0-0.9); MONOCYTES % (AUTO) 11.9 % (2-12); NEUTROPHILS # (AUTO) 6.7 X10'3 (1.8-7.7); PLATELET COUNT 501 X10'3 (140-440); RED BLOOD COUNT 3.94 X10'6 (4.70-6.10); RED CELL DISTRIBUTION WIDTH 14.2 % (11.5-14.5)
[2017-12-18 04:31] LABS: ALANINE AMINOTRANSFERASE 106 U/L (12-78); ALBUMIN 3.2 G/DL (3.4-5.0); ALBUMIN/GLOBULIN RATIO 0.7 (1.1-1.5); ALKALINE PHOSPHATASE 88 IU/L (46-116); ANION GAP 4 (8-16); ASPARTATE AMINO TRANSFERASE 32 U/L (10-37); BILIRUBIN,TOTAL 0.3 MG/DL (0.1-1.0); BLOOD UREA NITROGEN 11 MG/DL (7-18); BUN/CREATININE RATIO 40.7 (5.4-32.0); CALCIUM 9.3 MG/DL (8.5-10.1); CHLORIDE 99 MMOL/L (99-107); CREATININE 0.27 MG/DL (0.60-1.10); GLUCOSE 105 MG/DL (70-104); MAGNESIUM 2.5 MG/DL (1.5-2.4); PHOSPHORUS 3.8 MG/DL (2.3-4.5); POTASSIUM 3.8 MMOL/L (3.5-5.1); SODIUM 141 MMOL/L (135-145); TOTAL CARBON DIOXIDE 38.5 MMOL/L (24-32); TOTAL PROTEIN 7.9 G/DL (6.4-8.2); eGFR > 90 ML/MIN
[2017-12-18 05:03] LABS: PLATELET ESTIMATE INCREASED; TOTAL CELLS COUNTED 100
[2017-12-18] MEDS: methylnaltrexone br 12mg/0.6ml inj***SubQ only SQ SCH (08:00)
[2017-12-18] MEDS: K, MAG and/or Phos replacement - Verify level? MC SCH (08:00)
[2017-12-18] MEDS: pantoprazole 40 MG vial IV SCH (08:24)
[2017-12-18] MEDS: lactobacillus rhamnosus 10,000 MMU CELLS/CAPSULE PO SCH ×2 (08:24→20:00)
[2017-12-18] MEDS: enoxaparin 30mg/0.3ml syringe SUBCUT SCH (08:26)
[2017-12-18] MEDS: azithromycin 200mg/5ml oral suspension 15ml bottle PO SCH (08:27)
[2017-12-18] MEDS: budesonide 0.5mg/2ml UD nebule IH SCH ×2 (09:17→21:03)
[2017-12-18] MEDS: levoFLOXACIN 750MG TABLET PO SCH (10:52)
[2017-12-18] MEDS ORDERED: acetylcysteine 200 MG/ml 4ml vial INH ONE (16:00)
[2017-12-18] MEDS: polyethylene glycol 3350 17gm powd pack PO SCH (20:39)
[2017-12-18] MEDS: ipratropium 0.5 MG/2.5ML nebule IH SCH (21:03)
[2017-12-18] MEDS: acetylcysteine 200 MG/ml 4ml vial PO SCH (21:04)
[2017-12-18] MEDS ORDERED: polyethylene glycol 3350 17gm powd pack PEG PRN (21:07)
[2017-12-19] VITALS (24 sets, daily range): BP systolic 85–145; BP diastolic 42–93
[2017-12-19] MEDS: levalbuterol 0.63mg/3ml nebule IH SCH ×4 (03:27→21:00)
[2017-12-19] MEDS: ipratropium 0.5 MG/2.5ML nebule IH SCH ×4 (03:27→21:19)
[2017-12-19 05:27] LABS: BASOPHILS # (AUTO) 0.1 X10'3 (0-0.2); BASOPHILS % (AUTO) 0.7 % (0-1); EOSINOPHILS # (AUTO) 0.1 X10'3 (0-0.9); EOSINOPHILS % (AUTO) 0.7 % (0-6); HEMATOCRIT 33.1 % (42.0-52.0); HEMOGLOBIN 11.1 g/dl (14.0-17.9); LYMPHOCYTES # (AUTO) 2.1 X10'3 (1.1-4.8); LYMPHOCYTES % (AUTO) 22.4 % (21-51); MEAN CORPUSCULAR HEMOGLOBIN 30.4 PG (27.0-31.0); MEAN CORPUSCULAR HGB CONC 33.4 % (33.0-36.5); MEAN CORPUSCULAR VOLUME 91.1 FL (78-98); MEAN PLATELET VOLUME 7.1 FL (7.4-10.4); MONOCYTES # (AUTO) 1.1 X10'3 (0-0.9); MONOCYTES % (AUTO) 11.3 % (2-12); NEUTROPHILS # (AUTO) 6.2 X10'3 (1.8-7.7); NEUTROPHILS % (AUTO) 64.9 % (42-75); PLATELET COUNT 462 X10'3 (140-440); RED BLOOD COUNT 3.63 X10'6 (4.70-6.10); RED CELL DISTRIBUTION WIDTH 13.6 % (11.5-14.5); WHITE BLOOD COUNT 9.6 X10'3 (4.5-11.0)
[2017-12-19 05:45] LABS: ALANINE AMINOTRANSFERASE 68 U/L (12-78); ALBUMIN 2.9 G/DL (3.4-5.0); ALBUMIN/GLOBULIN RATIO 0.7 (1.1-1.5); ALKALINE PHOSPHATASE 76 IU/L (46-116); ANION GAP 3 (8-16); ASPARTATE AMINO TRANSFERASE 19 U/L (10-37); BILIRUBIN,TOTAL 0.2 MG/DL (0.1-1.0); BLOOD UREA NITROGEN 8 MG/DL (7-18); CALCIUM 9.3 MG/DL (8.5-10.1); CHLORIDE 101 MMOL/L (99-107); CREATININE 0.25 MG/DL (0.60-1.10); GLUCOSE 103 MG/DL (70-104); MAGNESIUM 2.3 MG/DL (1.5-2.4); PHOSPHORUS 2.2 MG/DL (2.3-4.5); POTASSIUM 3.5 MMOL/L (3.5-5.1); SODIUM 144 MMOL/L (135-145); TOTAL CARBON DIOXIDE 39.8 MMOL/L (24-32); TOTAL PROTEIN 7.2 G/DL (6.4-8.2); eGFR > 90 ML/MIN
[2017-12-19] MEDS: enoxaparin 30mg/0.3ml syringe SUBCUT SCH (07:52)
[2017-12-19] MEDS: pantoprazole 40 MG vial IV SCH (07:52)
[2017-12-19] MEDS: acetylcysteine 200 MG/ml 4ml vial PO SCH (08:00)
[2017-12-19] MEDS: K, MAG and/or Phos replacement - Verify level? MC SCH (08:00)
[2017-12-19] MEDS: Neutra Phos packet PO PRN (09:05)
[2017-12-19] MEDS: azithromycin 200mg/5ml oral suspension 15ml bottle PO SCH (09:05)
[2017-12-19] MEDS: lactobacillus rhamnosus 10,000 MMU CELLS/CAPSULE PO SCH ×2 (09:05→20:00)
[2017-12-19] MEDS: budesonide 0.5mg/2ml UD nebule IH SCH ×2 (09:38→21:19)
[2017-12-19] MEDS: levoFLOXACIN 750MG TABLET PO SCH (10:42)
[2017-12-19] MEDS: sodium phosphate inj. 15 MMOL in dextrose 5%-water 150 ML IV PRN (21:33)
[2017-12-20] VITALS (18 sets, daily range): BP systolic 86–137; BP diastolic 42–96
[2017-12-20] MEDS: ipratropium 0.5 MG/2.5ML nebule IH SCH ×4 (02:59→20:53)
[2017-12-20] MEDS: levalbuterol 0.63mg/3ml nebule IH SCH ×4 (02:59→20:54)
[2017-12-20 06:06] LABS: BASOPHILS % (AUTO) 0.5 % (0-1); EOSINOPHILS % (AUTO) 0 % (0-6); HEMATOCRIT 35.9 % (42.0-52.0); LYMPHOCYTES % (AUTO) 26.8 % (21-51); MEAN CORPUSCULAR HEMOGLOBIN 30.7 PG (27.0-31.0); MEAN CORPUSCULAR HGB CONC 33.3 % (33.0-36.5); MEAN PLATELET VOLUME 7.4 FL (7.4-10.4); MONOCYTES % (AUTO) 7.4 % (2-12); NEUTROPHILS # (AUTO) 5.9 X10'3 (1.8-7.7); NEUTROPHILS % (AUTO) 65.3 % (42-75); PLATELET COUNT 509 X10'3 (140-440); RED CELL DISTRIBUTION WIDTH 13.9 % (11.5-14.5)
[2017-12-20 06:07] LABS: LYMPHOCYTES # (AUTO) 2.4 X10'3 (1.1-4.8); MONOCYTES # (AUTO) 0.7 X10'3 (0-0.9)
[2017-12-20 06:24] LABS: ALANINE AMINOTRANSFERASE 60 U/L (12-78); ALBUMIN 3.1 G/DL (3.4-5.0); ALBUMIN/GLOBULIN RATIO 0.7 (1.1-1.5); ALKALINE PHOSPHATASE 77 IU/L (46-116); ANION GAP 2 (8-16); BILIRUBIN,TOTAL 0.3 MG/DL (0.1-1.0); BLOOD UREA NITROGEN 8 MG/DL (7-18); BUN/CREATININE RATIO 23.5 (5.4-32.0); CALCIUM 9.5 MG/DL (8.5-10.1); CHLORIDE 101 MMOL/L (99-107); CREATININE 0.34 MG/DL (0.60-1.10); GLUCOSE 121 MG/DL (70-104); MAGNESIUM 2.2 MG/DL (1.5-2.4); SODIUM 144 MMOL/L (135-145); TOTAL PROTEIN 7.7 G/DL (6.4-8.2); eGFR > 90 ML/MIN
[2017-12-20 06:29] LABS: ASPARTATE AMINO TRANSFERASE 26 U/L (10-37); POTASSIUM 3.4 MMOL/L (3.5-5.1)
[2017-12-20 07:03] LABS: TOTAL CARBON DIOXIDE 40.6 MMOL/L (24-32)
[2017-12-20] MEDS: lactobacillus rhamnosus 10,000 MMU CELLS/CAPSULE PO SCH ×2 (07:28→20:00)
[2017-12-20] MEDS: pantoprazole 40 MG vial IV SCH (07:29)
[2017-12-20] MEDS: enoxaparin 30mg/0.3ml syringe SUBCUT SCH (07:32)
[2017-12-20] MEDS: K, MAG and/or Phos replacement - Verify level? MC SCH (08:00)
[2017-12-20] MEDS: methylnaltrexone br 12mg/0.6ml inj***SubQ only SQ SCH (08:00)
[2017-12-20] MEDS: budesonide 0.5mg/2ml UD nebule IH SCH ×2 (09:30→20:54)
[2017-12-20] MEDS: levoFLOXACIN 750MG TABLET PO SCH (11:32)
[2017-12-20 11:46] LABS: ABG BASE EXCESS 10.6 mmol/L (-2.0-3.0); ABG OXYGEN SATURATION 94.8 % (95-98); ABG PCO2 (T) 64.3 mmHg (35.0-48.0); ABG PO2 (T) 74.8 mmHg (83-108); FCOHb 0.4 % (0.5-1.5); FLOW 2 L/min; FMetHb 0.3 % (0.3-1.12); FO2Hb 94.1 % (94-100); TOTAL HEMOGLOBIN 13.2 G/dl (14.0-18.0)
[2017-12-20] MEDS ORDERED: LEVA0.6319 IH (14:15)
[2017-12-20] MEDS ORDERED: LEVO750T46 PO (14:15)
[2017-12-21] VITALS (11 sets, daily range): BP systolic 80–132; BP diastolic 46–95
[2017-12-21] MEDS: ipratropium 0.5 MG/2.5ML nebule IH SCH ×2 (02:00→09:37)
[2017-12-21] MEDS: levalbuterol 0.63mg/3ml nebule IH SCH ×2 (03:34→09:38)
[2017-12-21 05:24] LABS: BASOPHILS # (AUTO) 0.1 X10'3 (0-0.2); BASOPHILS % (AUTO) 0.8 % (0-1); EOSINOPHILS # (AUTO) 0.1 X10'3 (0-0.9); EOSINOPHILS % (AUTO) 0.9 % (0-6); HEMATOCRIT 34.9 % (42.0-52.0); HEMOGLOBIN 11.6 g/dl (14.0-17.9); LYMPHOCYTES # (AUTO) 2.2 X10'3 (1.1-4.8); LYMPHOCYTES % (AUTO) 25.4 % (21-51); MEAN CORPUSCULAR HEMOGLOBIN 30.2 PG (27.0-31.0); MEAN CORPUSCULAR HGB CONC 33.3 % (33.0-36.5); MEAN CORPUSCULAR VOLUME 90.6 FL (78-98); MEAN PLATELET VOLUME 7.2 FL (7.4-10.4); MONOCYTES # (AUTO) 0.8 X10'3 (0-0.9); MONOCYTES % (AUTO) 9.3 % (2-12); NEUTROPHILS # (AUTO) 5.6 X10'3 (1.8-7.7); NEUTROPHILS % (AUTO) 63.6 % (42-75); PLATELET COUNT 522 X10'3 (140-440); RED BLOOD COUNT 3.86 X10'6 (4.70-6.10); RED CELL DISTRIBUTION WIDTH 14.1 % (11.5-14.5); WHITE BLOOD COUNT 8.9 X10'3 (4.5-11.0)
[2017-12-21 05:53] LABS: ALANINE AMINOTRANSFERASE 56 U/L (12-78); ALBUMIN 3.1 G/DL (3.4-5.0); ALBUMIN/GLOBULIN RATIO 0.8 (1.1-1.5); ALKALINE PHOSPHATASE 69 IU/L (46-116); ANION GAP 3 (8-16); ASPARTATE AMINO TRANSFERASE 23 U/L (10-37); BILIRUBIN,TOTAL 0.2 MG/DL (0.1-1.0); BLOOD UREA NITROGEN 13 MG/DL (7-18); BUN/CREATININE RATIO 35.1 (5.4-32.0); CALCIUM 9.7 MG/DL (8.5-10.1); CHLORIDE 103 MMOL/L (99-107); CREATININE 0.37 MG/DL (0.60-1.10); GLUCOSE 90 MG/DL (70-104); MAGNESIUM 2.4 MG/DL (1.5-2.4); POTASSIUM 3.2 MMOL/L (3.5-5.1); SODIUM 145 MMOL/L (135-145); TOTAL CARBON DIOXIDE 39.3 MMOL/L (24-32); TOTAL PROTEIN 7.2 G/DL (6.4-8.2); eGFR > 90 ML/MIN
[2017-12-21] MEDS: pantoprazole 40 MG vial IV SCH (06:56)
[2017-12-21 09:06] LABS: PHOSPHORUS 3.9 MG/DL (2.3-4.5)
[2017-12-21] MEDS: budesonide 0.5mg/2ml UD nebule IH SCH (09:37)
== END 2017-12-21 10:48 | disposition home or self-care (01) | DRG 207 ==
LOC: ER 22:06 → ED HOLD 23:32 → ICU 2S 12-10 00:50 → UNDODISIN 12-20 17:28 → CICU 2S 12-20 19:12 → ICU 2S 12-20 19:38
PROVIDERS: ADMIT Internal Medicine Critical Care Medicine; ATTEND Internal Medicine Critical Care Medicine
PROC: 5A1955Z Respiratory Ventilation, Greater than 96 Consecutive Hours (ICD-10-PCS; principal; 2017-12-09)
PROC: 0BH17EZ Insertion of Endotracheal Airway into Trachea, Via Natural or Artificial Opening (ICD-10-PCS; 2017-12-09)
DX: J18.9 Pneumonia, unspecified organism (principal); E87.2 Acidosis; J96.01 Acute respiratory failure with hypoxia; G80.9 Cerebral palsy, unspecified; M41.9 Scoliosis, unspecified; Z88.8 Allergy status to other drugs, medicaments and biological substances
CPT/HCPCS: 36415; 36600; 71045; 74018; 80053; 81003; 82803; 83605; 83735; 84100; 84134; 84145; 85007; 85018; 85025; 85027; 85610; 85730; 87040; 87070; 87077; 87185; 87502; 87503; 93005; 94002; 94003; 94640; 94760; 97162; 99291; A6212; A6213; A6257; A6258; A6449; A7015; C9113; J0456; J1650; J1956; J2250; J2270; J2704; J3480; J7030; J7060; J7614; J7626